=== PATIENT | male | born 1940 | race Caucasian/White ===

== ENCOUNTER → 2020-12-24 | Outpatient (CLI) | payer MEDICARE ==
[2015-10-27 14:27] VITALS: BP 138/61
[~2020-12-24] MED LIST: ATOR10TA PO; BARIUM SULFATE 40% (APPLE) 148 GM PWD. PO ONE; LISI10TA16 PO; METF500T16 PO; NIAC500T PO; WARF-31 PO
--- NOTE | 2020-12-24 17:19 | RAD ---
PROCEDURE: DG VIDEO SWALLOW STUDY STUDY DATE: 12/24/2020 CLINICAL INDICATION / HISTORY: Reason: DYSPHAGIA/ 3.7 min fluoro time / Spl. Instructions: / History : . TECHNIQUE: Real-time fluoroscopic imaging examination was performed in conjunction with speech therap y. The patient was administered barium labeled thin liquids, nectar, honey, pudding, and solid consis tency compounds. FLUOROSCOPY TIME: 3.7 minutes. Number of Images: 0 COMPARISON: C-spine CT 10/27/2015 FINDINGS: The oral phase was notable for decreased oral manipulation with all tested food consistencies. In the pharyngeal phase, moderate residual in the valleculae was observed despite multiple swallowing attem pts and there were repeated episodes of laryngeal penetration and occasional silent aspiration. The r esidue was most pronounced with pudding consistency food. Laryngeal penetration and aspiration was be st appreciated with thin liquids and nectar thick liquids. IMPRESSION: Dysphagia of the oral and pharyngeal phases. Silent aspiration observed. Please refer t o speech pathology notes for complete details and recommendations. Electronically signed by: Twila Schaffer MD (12/24/2020 5:17 PM) [id number]
== END ==
LOC: RAD 14:21
PROVIDERS: ATTEND Family Medicine
DX: R13.10 Dysphagia, unspecified (principal)
CPT/HCPCS: 74230; 92611-GN